=== PATIENT | female | born 1930 | race Caucasian/White ===

== ENCOUNTER 2019-09-30 12:37 | Emergency (ER) ==
--- NOTE | 2019-09-30 14:19 | RAD ---
XR Shoulder Lt 3 View STANDARD HISTORY: Injury, left shoulder pain FINDINGS: No fracture or dislocation is identified. There are degenerative changes in the acromioclavicular nara nt. The humeral head is high riding, suspicious for chronic rotator cuff tear.
[2019-09-30 15:32] LABS: #Eosinphils 0.1 thou/uL (0.0-0.7); #Lymphocytes 0.7 thou/uL (1.20-3.40); #Monocytes 0.7 thou/uL (0.11-0.59); #Neutrophils 5.4 thou/uL (1.40-6.50); %Basophils 0.3 % (0.0-1.0); %Eosinophils 1.1 % (0.0-10.0); %Lymphocytes 10.6 % (21.0-51.0); %Monocytes 9.6 % (0.0-10.0); %Neutrophils 78.4 % (42.0-75.0); Hemoglobin 10.2 g/dL (12.0-16.0); Mean Corpuscular HGB CONC 32.1 g/dL (32.0-36.0); Mean Corpuscular Hemoglobin 26.8 pg (27.0-31.0); Mean Corpuscular Volume 83.5 fL (78.0-98.0); Mean Platelet Volume 7.5 fL (7.4-10.4); Platelet Count 311 thou/uL (130-400); RBC Distribution Width 15.2 % (11.5-14.5); Red Blood Cell (RBC) Count 3.82 mill/uL (4.20-5.40); White Blood Cell (WBC) Count 6.9 thou/uL (4.8-10.8)
[2019-09-30 15:38] LABS: PTT 32.9 SEC (22.9-36.1); Prothrombin Time 13.3 SEC (12.0-14.7)
[2019-09-30 15:47] LABS: ALT (SGPT) 14 U/L (8-55); AST (SGOT) 26 U/L (5-34); Albumin 4.1 g/dL (3.4-4.8); Alkaline Phosphatase 92 U/L (40-110); Anion Gap 6 mmol/L (10-20); BUN (Urea Nitrogen) 23 mg/dL (9.8-20.1); Bilirubin, Total 0.7 mg/dL (0.2-1.2); Calc. Creatinine Clearance 0 mL/min (70-130); Calcium 9.7 mg/dL (7.8-10.44); Carbon Dioxide 29 mmol/L (23-31); Chloride 106 mmol/L (98-107); Estimated GFR-MDRD 52; Globulin 4.3 g/dL (2.4-3.5); Glucose 109 mg/dL (83-110); Protein, Total 8.4 g/dL (6.0-8.3); Sodium 137 mmol/L (136-145)
[2019-09-30 16:19] LABS: CKMB 3.6 ng/mL (0-6.6)
[2019-09-30 17:58] LABS: Troponin I 0.059 ng/mL (< 0.028)
== END 2019-09-30 18:20 | disposition home or self-care (01) ==
LOC: ERS 12:37
DX: M25.512 Pain in left shoulder (principal); I48.91 Unspecified atrial fibrillation; F03.90 Unspecified dementia, unspecified severity, without behavioral disturbance, psychotic disturbance, mood disturbance, and anxiety; D64.9 Anemia, unspecified; M06.9 Rheumatoid arthritis, unspecified; Z79.891 Long term (current) use of opiate analgesic; Z79.899 Other long term (current) drug therapy
CPT/HCPCS: 36415; 36416; 80053; 82553; 84484; 85025; 85610; 85730; 93005

== ENCOUNTER 2019-10-14 11:00 | Inpatient (IN) | payer MEDICARE ==
[2019-10-14] MEDS ORDERED: Lorazepam 2 MG/ML VIAL ONE (11:20)
[2019-10-14 11:32] LABS: #Lymphocytes 0.5 thou/uL (1.20-3.40); #Monocytes 0.6 thou/uL (0.11-0.59); #Neutrophils 4.6 thou/uL (1.40-6.50); %Basophils 0.5 % (0.0-1.0); %Eosinophils 0.8 % (0.0-10.0); %Lymphocytes 8.9 % (21.0-51.0); %Monocytes 10.3 % (0.0-10.0); %Neutrophils 79.4 % (42.0-75.0); Hemoglobin 8.9 g/dL (12.0-16.0); Mean Corpuscular HGB CONC 31.6 g/dL (32.0-36.0); Mean Corpuscular Hemoglobin 26.2 pg (27.0-31.0); Mean Corpuscular Volume 83.1 fL (78.0-98.0); Mean Platelet Volume 7.4 fL (7.4-10.4); Platelet Count 289 thou/uL (130-400); RBC Distribution Width 15.9 % (11.5-14.5); Red Blood Cell (RBC) Count 3.37 mill/uL (4.20-5.40); White Blood Cell (WBC) Count 5.7 thou/uL (4.8-10.8)
[2019-10-14 11:57] LABS: Anion Gap 15 mmol/L (10-20); BUN (Urea Nitrogen) 22 mg/dL (9.8-20.1); Calc. Creatinine Clearance 0 mL/min (70-130); Carbon Dioxide 20 mmol/L (23-31); Chloride 106 mmol/L (98-107); Estimated GFR-MDRD 61; Potassium 3.8 mmol/L (3.5-5.1); Sodium 137 mmol/L (136-145)
[2019-10-14 11:58] LABS: ALT (SGPT) 17 U/L (8-55); AST (SGOT) 26 U/L (5-34); Albumin 3.8 g/dL (3.4-4.8); Alkaline Phosphatase 97 U/L (40-110); Bilirubin, Total 1.2 mg/dL (0.2-1.2); CK (CPK) 48 U/L (29-168); Calcium 9.4 mg/dL (7.8-10.44); Globulin 4.1 g/dL (2.4-3.5); Glucose 97 mg/dL (83-110); Protein, Total 7.9 g/dL (6.0-8.3)
[2019-10-14] MEDS ORDERED: Ondansetron PF 4 MG/2 ML Vial ONE (12:17)
[2019-10-14 13:10] LABS: Bilirubin Negative (Negative); Blood, Urine Negative (Negative); Clarity Clear (Clear); Glucose, Urine (Dipstick) Normal (Negative); Leukocyte Negative Leu/uL (Negative); Nitrite Negative (Negative); Protein, Urine (Dipstick) Negative (Neg-Trace); Urobilinogen Normal mg/dL (Less than 2)
[2019-10-14 13:23] LABS: CKMB 3.5 ng/mL (0-6.6)
[2019-10-14] MEDS ORDERED: Enoxaparin Sodium 30 MG/0.3 ML SYRINGE ONE (14:49)
[2019-10-14] MEDS ORDERED: Enoxaparin Sodium 40 MG/0.4 ML SYRINGE ONE (14:49)
[2019-10-14] MEDS ORDERED: Aspirin 325 MG TAB ONE (14:50)
--- NOTE | 2019-10-14 14:55 | RAD ---
Exam: Chest one view HISTORY:Dyspnea Comparison: None FINDINGS: Cardiac silhouette:Negative. Aorta: Atherosclerosis of the aortic knob Pulmonary vessels: Normal Costophrenic angles: Clear LUNGS: Bilateral interstitial and alveolar opacities. Pneumothorax: None Osseous abnormalities: None IMPRESSION: Relatively. Bilateral interstitial and alveolar opacities. Correlate for heart failure. A therosclerosis.
[2019-10-14 15:03] LABS: Troponin I 0.055 ng/mL (< 0.028)
[2019-10-14] MEDS ORDERED: Acetaminophen 325 MG TAB PO PRN (15:03)
[2019-10-14] MEDS ORDERED: Metoprolol Tartrate 25 MG TAB PO SCH (16:00)
[2019-10-14] MEDS ORDERED: Furosemide 40 MG/4 ML VIAL SLOW IVP SCH (16:00)
--- NOTE | 2019-10-14 17:26 | HP ---
PRIMARY CARE PHYSICIAN: Dr. Jhonathan Waite. CHIEF COMPLAINT: Elevated heart rate, not feeling well, weakness, shortness of breath. HISTORY OF PRESENT ILLNESS: This is an 88-year-old female, resident of [facility] with a documented past medical history of advanced dementia; rheumatoid arthritis, on steroids; chronic anemia; chronic atrial fibrillation, on anticoagulation, secondary to risk/benefit stratification, who was referred to [facility] ER by primary care physician after nursing staff reports resting heart rate in the 140s with the patient complains of not feeling well and subjective shortness of breath over the past several days. A detailed survey due to the patient's unreliable history and collateral information was obtained from ER physician, the patient's son via telephone and the patient's primary care physician via telephone. In the ER, the patient was reported to have resting heart rates of 100, atrial fibrillation with initial blood pressure of 139/103. Labs revealed a mildly elevated troponin I of 0.066, unchanged from weeks prior with an elevated BNP of 940. No chest x-ray was obtained in the ER. The patient was also administered 500 mL normal saline bolus, oral aspirin 325 mg, 1 mg/kg Lovenox injection, and 0.5 mg IV Ativan. At bedside, the patient was oriented to self. She states the past several days, she has been short of breath and has had a discomfort sensation in her throat. She denies any recent illnesses, nausea, vomiting, diarrhea, angina, or abdominal pain. She notes chronic complaints of left shoulder pain. Multiple times the pain is much more accurate, and reliable history from the patient is unobtainable due to the patient's underlying dementia. Discussion with patient's son, Alexy Manuel, via telephone was done. He reports his mother was recently started on memantine low dose by primary care physician. No other changes in medications have been made. He also reports that nursing facility noted the patient's resting heart rate to be 80% to 84% days prior, but several days later, was normal in the mid 90s. He is unclear if his mother has obstructive sleep apnea. She has never been tested. Of note, the patient was evaluated in the ER approximately 2 weeks ago and has had 2 recent visits for being found on the ground. Family does not think that she is falling, but rather "melting" to floor due to her weakness. PAST MEDICAL HISTORY: Advanced dementia; rheumatoid arthritis, on steroids; anemia; chronic atrial fibrillation, on anticoagulation due to risk and benefits as per patient's economic research analyst, Dr. Alvarez; hiatal hernia; and scoliosis. SOCIAL HISTORY: The patient is resided at [facility]. She reports she is ambulatory without assistive devices. No documented tobacco or alcohol use. ALLERGIES: NONE REPORTED. REVIEW OF SYSTEMS: Unable to obtain from the patient as she is unreliable historian. Pertinent positives noted as per HPI. Remainder of review of systems is negative. MEDICATIONS: Home medications will be reviewed as per admission medication reconciliation once it is accurately verified. FAMILY HISTORY: Notable for dementia in multiple family members. The patient's mother at the age of 90. PHYSICAL EXAMINATION: VITAL SIGNS: Temperature maximum afebrile at 97.9, pulse 97, atrial fibrillation, blood pressure 138/103, and oxygen saturation is 94% on room air. GENERAL APPEARANCE: This is an elderly female who is awake, alert, and oriented only to self, otherwise unreliable historian, not in any obvious distress. HEENT: Normocephalic, atraumatic. No facial asymmetry. Mucous membranes moist. NECK: Supple. CARDIOVASCULAR SYSTEM: S1, S2. Regular rate and rhythm. No harsh murmurs. No reproducible chest wall tenderness. LUNGS: Nonlabored respiration on bilateral posterior auscultation. Symmetrical chest expansion. Scattered rhonchi with mild basilar rales. No wheezing. ABDOMEN: Soft, nontender, and nondistended. EXTREMITIES: No appreciable lower extremity edema. SKIN: Warm to touch without rash or pallor. Scattered ecchymoses noted throughout the body. LABORATORY VALUES: Troponin I 0.066 with repeat 0.055. Urinalysis negative. Influenza antigen negative. BNP 938.8. Sodium 137, potassium 3.8, chloride 106, bicarb 20, glucose 97, BUN and creatinine 22/0.88, and GFR 61. Lactic acid 1.0. WBC 5.7, H and H 8.9/28.0, and platelets 289. IMAGING: No imaging was obtained in the emergency room. ASSESSMENT: Chronic atrial fibrillation with possible rapid ventricular response. The patient will be admitted as observation status and placed on telemetry monitoring. Currently, she has ventricular rate control. Review of medications from recent ER visit noted the patient on Lopressor 12.5 mg twice daily. We will increase dose to 25 mg twice daily and monitor for appropriate ventricular rate control. We will obtain one view chest x-ray to evaluate for any pulmonary edema which may be contributing to the patient's subjective complaints of dyspnea in the setting of elevated BNP. Influenza antigen notably negative. Also continue oral Lasix. We will request ambulatory pulse oximetry. The patient may benefit from outpatient polysomnography. Shortness of breath of unspecified etiology. We will obtain one view chest x-ray to evaluate for any pulmonary edema in the setting of chronic atrial fibrillation and reported rapid ventricular response prior to arrival. Acute on chronic anemia. The patient exhibits no signs of reported acute blood loss. We will monitor H and H. Advanced dementia. Unfortunately, this limits majority of the patient's history. We will consult PT and OT to assess for gait evaluation and the patient's safety. The patient does not exhibit any signs of aggression at this time. Urinalysis is negative for any signs of infection. Rheumatoid arthritis, on chronic steroids. We will resume at home dose. Chronic atrial fibrillation. The patient is currently with ventricular rate control. Continue oral Lopressor, increase dose to 25 mg twice daily. Continue oral Lasix as well. DVT prophylaxis: Low-molecular weight heparin. The patient received weight-based dose in ER. Code status: Full code. The patient's son, Alexy Manuel, is surrogate decision maker. Check a.m. labs on 10/15/2019. Disposition: The patient will be admitted as observation status and placed on telemetry monitoring. Anticipate less than 24-hour stay. Job ID: [id number]
[2019-10-14 18:06] LABS: Troponin I 0.063 ng/mL (< 0.028)
[2019-10-14] MEDS: Metoprolol Tartrate 25 MG TAB PO SCH (18:33)
[2019-10-15] MEDS ORDERED: diphenhydrAMINE 50 MG/ML VIAL IVP SCH (00:45)
[2019-10-15 04:35] LABS: Anion Gap 13 mmol/L (10-20); BUN (Urea Nitrogen) 26 mg/dL (9.8-20.1); Calc. Creatinine Clearance 41 mL/min (70-130); Calcium 8.7 mg/dL (7.8-10.44); Carbon Dioxide 21 mmol/L (23-31); Chloride 105 mmol/L (98-107); Estimated GFR-MDRD 48; Glucose 72 mg/dL (83-110); Potassium 3.6 mmol/L (3.5-5.1); Sodium 135 mmol/L (136-145)
[2019-10-15] MEDS ORDERED: Prevnar 13-Val Conj/PF 0.5 ML SYRINGE IM ONE (09:00)
[2019-10-15] MEDS ORDERED: FLU VACC TS2019-20(65YR UP)/PF 180 MCG/0.5 ML SYRINGE IM ONE (09:00)
[2019-10-15] MEDS: Furosemide 20 MG TAB PO SCH (09:30)
[2019-10-15] MEDS: Metoprolol Tartrate 25 MG TAB PO SCH ×2 (09:30→20:35)
[2019-10-15] MEDS: Enoxaparin Sodium 40 MG/0.4 ML SYRINGE SC SCH (09:30)
--- NOTE | 2019-10-15 10:33 | PDOC.HOSPP ---
- Subjective Subjective: Pt is non-verbal. Received Seroquel and Benadryl overnight for agitation. - Objective Vital Signs & Weight: Vital Signs (12 hours) Temp Pulse Resp BP Pulse Ox 10/15/19 07:45 75 16 127/70 95 10/15/19 00:00 97.8 F 100 18 124/77 92 L Weight Weight 156 lb 14.4 oz I&O: 10/14/19 10/15/19 10/16/19 06:59 06:59 06:59 Intake Total 240 Balance 240 Result Diagrams: 10/17/19 04:33 10/17/19 04:33 Hospitalist ROS - Medication Medications: Active Medications Generic Name Dose Route Start Last Admin Trade Name Freq PRN Reason Stop Dose Admin Acetaminophen 650 mg 10/14/19 15:03 10/14/19 21:56 Tylenol PO 650 mg Q4H PRN Administration Headache/Fever/Mild Pain (1-3) Enoxaparin Sodium 40 mg 10/15/19 09:00 10/15/19 09:30 Lovenox SC 40 mg 0900 YOLA Administration Furosemide 20 mg 10/15/19 09:00 10/15/19 09:30 Lasix PO 20 mg DAILY YOLA Administration Metoprolol Tartrate 25 mg 10/14/19 21:00 10/15/19 09:30 Lopressor PO 25 mg BID YOLA Administration - Exam General Appearance: NAD General - other findings: asleep and not arousable to verbal stimulation Heart: no murmur, no gallops, no rubs, irregular Respiratory: CTAB, no wheezes, no rales, no ronchi Respiratory - other findings: anterior auscultation Gastrointestinal: soft Extremities: no cyanosis, no clubbing, no edema Hosp A/P (1) Acute metabolic encephalopathy Code(s): G93.41 - METABOLIC ENCEPHALOPATHY Status: Acute (2) Acute respiratory failure with hypoxia Code(s): J96.01 - ACUTE RESPIRATORY FAILURE WITH HYPOXIA Status: Acute (3) Atrial fibrillation Code(s): I48.91 - UNSPECIFIED ATRIAL FIBRILLATION Status: Acute (4) Dementia Code(s): F03.90 - UNSPECIFIED DEMENTIA WITHOUT BEHAVIORAL DISTURBANCE Status: Acute (5) Rheumatoid arthritis Code(s): M06.9 - RHEUMATOID ARTHRITIS, UNSPECIFIED Status: Acute - Plan Will allow her get some sleep today. It appears that the afib was controlled well with the additional po beta katty. She is stable from that perspective. If her mental status is improved with the rest she gets today, may be able DC soon.
[2019-10-15 14:14] VITALS: BMI 30.6
--- NOTE | 2019-10-15 17:06 | CON ---
DATE OF CONSULTATION: 10/15/2019 PRIMARY ANALYTICAL SCIENCES DIRECTOR: Gia Alvarez MD HISTORY OF PRESENT ILLNESS: Ms. Manuel is a very pleasant 88-year-old white female, who comes to the hospital for not feeling well. She has history of chronic atrial fibrillation. She is a resident at [facility] and she was apparently brought in because the nursing staff reported that her resting heart rate was in the 140s and she was complaining of not feeling well with shortness of breath in the past several days. She was admitted and found to be in atrial fibrillation with RVR. Heart rate was about in the 140s. She was unable to give me any history, but currently she is sleeping on the bed. She has a sitter inside the room and apparently she has had something for agitation, this probably keeping her like this. Currently, her heart rate is in the 60s. She is chronically in atrial fibrillation. PAST MEDICAL HISTORY: 1. Dementia. 2. Rheumatoid arthritis. 3. Some sort of hemolytic anemia on one of the notes from her primary care physician. 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 The last documented hemoglobin that was normal was 12.9 and this was back in December of this year. 4. Chronic atrial fibrillation. 5. No anticoagulation secondary to severe anemia in the past. 6. Hiatal hernia. 7. Scoliosis. SOCIAL HISTORY: Resides at [facility]. No alcohol, tobacco, or drugs. OUTPATIENT MEDICATIONS: 1. Tramadol 50 mg p.r.n. pain. 2. Prednisone 10 mg b.i.d. 3. Omeprazole. 4. Metoprolol 12.5 mg b.i.d. 5. Furosemide 10 mg a day. 6. Gabapentin . 7. . 8. Cymbalta. 9. Tylenol p.r.n. ALLERGIES: NO KNOWN DRUG ALLERGIES. REVIEW OF SYSTEMS: Unobtainable as the patient currently is sleepy. PHYSICAL EXAMINATION: VITAL SIGNS: Temperature 97.4, pulse 72, respiratory rate 18, sat 93% on 2 L nasal cannula, blood pressure 126/76. GENERAL: She is somnolent, but her airway is secure. HEENT: Normocephalic, atraumatic. NECK: Supple. LUNGS: Clear. CARDIOVASCULAR: S1 and S2. No S3 or S4. Irregularly irregular. Heart rate in the 60s. ABDOMEN: Soft. Positive bowel sounds. EXTREMITIES: No edema. SKIN: Warm and dry. LABORATORY DATA: Laboratory work was reviewed. CBC with a white count of 5.7, hemoglobin of 8.9, which is much lower. Just about 3 weeks ago, her hemoglobin was 10.2 and back in December was 12.9. Platelet count of 289. Chemistries were reviewed. Troponin was 0.06, 0.05, 0.06, indeterminate range. UA was negative. Chest x-ray showed bilateral interstitial alveolar opacities. BNP was in 900 range. ASSESSMENT: 1. Acute on chronic diastolic heart failure. 2. Chronic atrial fibrillation with RVR, currently rate controlled. 3. Anemia, new onset. No longer at baseline. PLAN: 1. Continue current regimen with metoprolol 25 mg twice a day. 2. More than likely, her main issue is the anemia. She is probably developing worsening anemia she has had in the past. 3. If this is in fact a hemolytic anemia, I would recommend hematology consultation, may not benefit from blood transfusion. 4. Her atrial fibrillation is chronic and is currently rate controlled. No new recommendation at this time. 5. She has a contraindication to anticoagulation for stroke prophylaxis given her profound anemia in the past and worsening anemia now. Thank you for letting us participate in the care of your patient. Dr. Alvarez, her primary office employee will follow in the morning. Job ID: [id number]
[2019-10-16] MEDS ORDERED: traMADol HCl 50 MG TAB PO PRN (06:06)
[2019-10-16 06:27] LABS: Reticulocyte Count 2.1 % (0.5-1.5)
[2019-10-16 06:40] LABS: Hemoglobin 9.2 g/dL (12.0-16.0); Lymphocytes 10 % (21-51); MDiff Complete? YES; Mean Corpuscular Hemoglobin 26.6 pg (27.0-31.0); Mean Corpuscular Volume 83.2 fL (78.0-98.0); Mean Platelet Volume 7.2 fL (7.4-10.4); Monocytes 10 % (0-10); Neutrophil 80 % (42-75); Platelet Count 291 thou/uL (130-400); Platelet Morphology Comment Appears Adequate; RBC Distribution Width 15.7 % (11.5-14.5); Red Blood Cell (RBC) Count 3.47 mill/uL (4.20-5.40)
[2019-10-16 06:45] LABS: Anion Gap 10 mmol/L (10-20); BUN (Urea Nitrogen) 28 mg/dL (9.8-20.1); Calc. Creatinine Clearance 45 mL/min (70-130); Calcium 8.9 mg/dL (7.8-10.44); Carbon Dioxide 25 mmol/L (23-31); Chloride 103 mmol/L (98-107); Estimated GFR-MDRD 54; Glucose 105 mg/dL (83-110); Potassium 3.4 mmol/L (3.5-5.1); Sodium 135 mmol/L (136-145)
[2019-10-16] MEDS: Gabapentin 100 MG CAP PO SCH (08:30)
[2019-10-16] MEDS: DULoxetine 30 MG CAP PO SCH (08:30)
[2019-10-16] MEDS: Furosemide 20 MG TAB PO SCH (08:30)
[2019-10-16] MEDS: Metoprolol Tartrate 25 MG TAB PO SCH ×2 (08:30→21:23)
[2019-10-16] MEDS ORDERED: Metoprolol Tartrate 25 MG TAB PO SCH (09:00)
[2019-10-16] MEDS ORDERED: Furosemide 20 MG TAB PO SCH (09:00)
[2019-10-16] MEDS: Enoxaparin Sodium 40 MG/0.4 ML SYRINGE SC SCH (09:10)
[2019-10-16] MEDS: predniSONE 1 MG TAB PO SCH ×2 (09:11→21:23)
--- NOTE | 2019-10-16 09:51 | PDOC.HOSPP ---
- Subjective Subjective: Pt is resting in bed. She is not oriented, but has chronic dementia. - Objective Vital Signs & Weight: Vital Signs (12 hours) Temp Pulse Resp BP Pulse Ox 10/16/19 08:00 99.1 F 108 H 24 H 120/57 L 93 L 10/16/19 03:17 98 F 88 16 136/87 96 Weight Admit Weight 157 lb 9.6 oz Weight 156 lb I&O: 10/15/19 10/16/19 10/17/19 06:59 06:59 06:59 Intake Total 240 1100 Output Total 300 Balance 240 800 Result Diagrams: 10/16/19 06:19 10/16/19 06:19 Hospitalist ROS - Medication Medications: Active Medications Generic Name Dose Route Start Last Admin Trade Name Jaswinder PRN Reason Stop Dose Admin Acetaminophen 650 mg 10/14/19 15:03 10/14/19 21:56 Tylenol PO 650 mg Q4H PRN Administration Headache/Fever/Mild Pain (1-3) Duloxetine HCl 30 mg 10/16/19 09:00 10/16/19 08:30 Cymbalta PO 30 mg DAILY YOLA Administration Enoxaparin Sodium 40 mg 10/15/19 09:00 10/16/19 09:10 Lovenox SC 40 mg 0900 YOLA Administration Furosemide 20 mg 10/15/19 09:00 10/16/19 08:30 Lasix PO 20 mg DAILY YOLA Administration Furosemide 10 mg 10/16/19 09:00 10/16/19 08:31 Lasix PO Not Given DAILY YOLA Gabapentin 200 mg 10/16/19 09:00 10/16/19 08:30 Neurontin PO 200 mg DAILY YOLA Administration Metoprolol Tartrate 25 mg 10/14/19 21:00 10/16/19 08:30 Lopressor PO 25 mg BID YOLA Administration Metoprolol Tartrate 12.5 mg 10/16/19 09:00 10/16/19 08:31 Lopressor PO Not Given BID YOLA Pantoprazole Sodium 40 mg 10/16/19 09:00 10/16/19 08:30 Protonix PO 40 mg BID YOLA Administration Prednisone 2 mg 10/16/19 09:00 10/16/19 09:11 Prednisone PO 2 mg BID YOLA Administration - Exam General Appearance: NAD, awake alert General - other findings: Oriented only to self Heart: no murmur, no gallops, no rubs, irregular Respiratory: CTAB, no wheezes, no rales, no ronchi, normal chest expansion, no tachypnea Gastrointestinal: soft, non-tender, non-distended Extremities: no edema Hosp A/P (1) Atrial fibrillation Code(s): I48.91 - UNSPECIFIED ATRIAL FIBRILLATION Status: Acute - Plan Atrial Fibrillation: Patient had apparent RVR at the group home and was tachycardic upon arrival in the ED. Lopressor increased to 25 BID. Rate has been controlled throughout hospital stay. AMS: Patient has chronic dementia. Unclear what her baseline is, but sounds like she might be at baseline. Acute Hypoxic Respiratory Failure: On 2 L O2 NC. Will attempt to wean patient off today.
--- NOTE | 2019-10-16 13:15 | PDOC.CPN ---
- Subjective Date: 10/16/19 Time: 08:30 Interval history: The pt seen and examined. No overnight events. Unable to follow commands at this moment due to dementia or AMS? Sitter at bedside - Objective Allergies/Adverse Reactions: Allergies Allergy/AdvReac Type Severity Reaction Status Date / Time No Known Allergies Allergy Unverified 10/14/19 15:52 Visit Medications: Current Medications Acetaminophen (Tylenol) 650 mg PO Q4H PRN PRN Reason: Headache/Fever/Mild Pain (1-3) Last Admin: 10/14/19 21:56 Dose: 650 mg Duloxetine HCl (Cymbalta) 30 mg PO DAILY [facility] Last Admin: 10/16/19 08:30 Dose: 30 mg Enoxaparin Sodium (Lovenox) 40 mg SC 0900 [facility] Last Admin: 10/16/19 09:10 Dose: 40 mg Furosemide (Lasix) 20 mg PO DAILY [facility] Last Admin: 10/16/19 08:30 Dose: 20 mg Furosemide (Lasix) 10 mg PO DAILY [facility] Last Admin: 10/16/19 08:31 Dose: Not Given Gabapentin (Neurontin) 200 mg PO DAILY [facility] Last Admin: 10/16/19 08:30 Dose: 200 mg Metoprolol Tartrate (Lopressor) 25 mg PO BID [facility] Last Admin: 10/16/19 08:30 Dose: 25 mg Metoprolol Tartrate (Lopressor) 12.5 mg PO BID [facility] Last Admin: 10/16/19 08:31 Dose: Not Given Pantoprazole Sodium (Protonix) 40 mg PO BID [facility] Last Admin: 10/16/19 08:30 Dose: 40 mg Prednisone (Prednisone) 2 mg PO BID [facility] Last Admin: 10/16/19 09:11 Dose: 2 mg Tramadol HCl (Ultram) 50 mg PO DAILYPRN PRN PRN Reason: Moderate Pain (4-6) Vital Signs & Weight: Vital Signs Temp Pulse Pulse Resp BP BP Pulse Ox 10/16/19 11:15 98.9 F 83 22 H 144/79 H 96 10/16/19 10:51 90 124/71 10/16/19 08:00 99.1 F 108 H 24 H 120/57 L 93 L 10/16/19 03:17 98 F 88 16 136/87 96 Pulse Ox 10/16/19 11:15 12/19/19 10:51 91 L 10/16/19 08:00 10/16/19 03:17 Admit Weight 157 lb 9.6 oz Weight 156 lb - Physical Exam General: other (confused) HEENT: mucus membranes moist Neck: supple neck Cardiac: irregularly regular Lungs: clear to auscultation, decreased breath sounds - Labs Result Diagrams: 10/16/19 06:19 10/16/19 06:19 Troponin/CKMB CK-MB (CK-2) 3.5 ng/mL (0-6.6) 10/14/19 11:23 Troponin I 0.063 ng/mL (< 0.028) H 10/14/19 17:25 - Telemetry Supraventricular conduction: atrial fibrillation - Assessment/Plan Assessment/Plan: 1. Parox Afib - well controlled HR with Metoprolol 25mg BID; unable to tolerate OAC due to hx of Anemia 2. AMS - possible due to dementia? sitter at bedside 3. Acute resp failure - on 2LNC 4. Hemolytic anemia - 5. Dementia MAR reviewed * Echo on 10/15/2019 with EF 45-50%, unable to review distolic function 2/2 afib , severe dilated LA, mod MR, mild AR and WI, mod-severe TR, RVSP 71mmHg, and dilated Aortic root 4.1cm
[2019-10-17 05:09] LABS: #Lymphocytes 0.8 thou/uL (1.20-3.40); #Monocytes 1.1 thou/uL (0.11-0.59); #Neutrophils 6.4 thou/uL (1.40-6.50); %Basophils 0.1 % (0.0-1.0); %Eosinophils 0.5 % (0.0-10.0); %Lymphocytes 9.8 % (21.0-51.0); %Monocytes 13.4 % (0.0-10.0); %Neutrophils 76.2 % (42.0-75.0); Anion Gap 11 mmol/L (10-20); BUN (Urea Nitrogen) 25 mg/dL (9.8-20.1); Calc. Creatinine Clearance 49 mL/min (70-130); Calcium 8.7 mg/dL (7.8-10.44); Carbon Dioxide 23 mmol/L (23-31); Chloride 101 mmol/L (98-107); Estimated GFR-MDRD 60; Glucose 108 mg/dL (83-110); Hemoglobin 9.1 g/dL (12.0-16.0); Mean Corpuscular HGB CONC 32.2 g/dL (32.0-36.0); Mean Corpuscular Hemoglobin 26.7 pg (27.0-31.0); Mean Platelet Volume 7.7 fL (7.4-10.4); Platelet Count 277 thou/uL (130-400); Potassium 3.4 mmol/L (3.5-5.1); Red Blood Cell (RBC) Count 3.42 mill/uL (4.20-5.40); Sodium 132 mmol/L (136-145); White Blood Cell (WBC) Count 8.5 thou/uL (4.8-10.8)
[2019-10-17] MEDS: Furosemide 20 MG TAB PO SCH (09:06)
[2019-10-17] MEDS: Metoprolol Tartrate 25 MG TAB PO SCH ×2 (09:06→21:05)
[2019-10-17] MEDS: predniSONE 1 MG TAB PO SCH ×2 (09:07→21:05)
[2019-10-17] MEDS: Gabapentin 100 MG CAP PO SCH (09:07)
[2019-10-17] MEDS: Enoxaparin Sodium 40 MG/0.4 ML SYRINGE SC SCH (09:07)
[2019-10-17] MEDS: DULoxetine 30 MG CAP PO SCH (09:08)
--- NOTE | 2019-10-17 12:48 | PDOC.CPN ---
- Subjective Date: 10/17/19 Time: 08:30 Interval history: The pt seen and examined. No overnight events. Per the sitter at bedside, the pt was awake over last night and just fell sleep this AM. - Objective Allergies/Adverse Reactions: Allergies Allergy/AdvReac Type Severity Reaction Status Date / Time No Known Allergies Allergy Unverified 10/14/19 15:52 Visit Medications: Current Medications Acetaminophen (Tylenol) 650 mg PO Q4H PRN PRN Reason: Headache/Fever/Mild Pain (1-3) Last Admin: 10/14/19 21:56 Dose: 650 mg Duloxetine HCl (Cymbalta) 30 mg PO DAILY [facility] Last Admin: 10/17/19 09:08 Dose: 30 mg Enoxaparin Sodium (Lovenox) 40 mg SC 0900 [facility] Last Admin: 10/17/19 09:07 Dose: 40 mg Furosemide (Lasix) 10 mg PO DAILY [facility] Last Admin: 10/17/19 09:06 Dose: 10 mg Gabapentin (Neurontin) 200 mg PO DAILY [facility] Last Admin: 10/17/19 09:07 Dose: 200 mg Metoprolol Tartrate (Lopressor) 25 mg PO BID [facility] Last Admin: 10/17/19 09:06 Dose: 25 mg Pantoprazole Sodium (Protonix) 40 mg PO BID [facility] Last Admin: 10/17/19 09:06 Dose: 40 mg Prednisone (Prednisone) 2 mg PO BID [facility] Last Admin: 10/17/19 09:07 Dose: 2 mg Tramadol HCl (Ultram) 50 mg PO DAILYPRN PRN PRN Reason: Moderate Pain (4-6) Vital Signs & Weight: Vital Signs Temp Pulse Resp BP Pulse Ox 10/17/19 11:40 98.0 F 92 20 134/79 98 10/17/19 07:40 98.0 F 91 18 139/84 98 10/17/19 04:00 97.5 F L 103 H 18 120/96 H 93 L Admit Weight 157 lb 9.6 oz Weight 154 lb 1.6 oz - Physical Exam General: other (sleeping) - Labs Result Diagrams: 10/17/19 04:33 10/17/19 04:33 Troponin/CKMB CK-MB (CK-2) 3.5 ng/mL (0-6.6) 10/14/19 11:23 Troponin I 0.063 ng/mL (< 0.028) H 10/14/19 17:25 - Telemetry Supraventricular conduction: atrial fibrillation - Assessment/Plan Assessment/Plan: 1. Parox Afib - well controlled HR with Metoprolol 25mg BID; unable to tolerate OAC due to hx of Anemia 2. AMS - possible due to dementia? sitter at bedside 3. Acute resp failure - stable with 2LNC 4. Hemolytic anemia - 5. Dementia MAR reviewed * Echo on 10/15/2019 with EF 45-50%, unable to review diastolic function 2/2 afib, severe dilated LA, mod MR, mild AR and FL, mod-severe TR, RVSP 71mmHg, and dilated Aortic root 4.1cm Pt. seen and eval. by me. I agree with the A/P by the EMAIL SPECIALIST. She is very lethargic and somewhat confused. The HR is reasonably well controlled on the present meds. Continue betablockers. No further cardiac workup at this time.I will sign off. If any further cardiac problems please consult or inform us again.
--- NOTE | 2019-10-17 15:42 | PDOC.HOSPP ---
- Subjective Subjective: Still confused, but seems to be much more calm since the Poole placed. Denies problems. - Objective Vital Signs & Weight: Vital Signs (12 hours) Temp Pulse Resp BP Pulse Ox 10/17/19 11:40 98.0 F 92 20 134/79 98 10/17/19 07:40 98.0 F 91 18 139/84 98 10/17/19 04:00 97.5 F L 103 H 18 120/96 H 93 L Weight Admit Weight 157 lb 9.6 oz Weight 154 lb 1.6 oz I&O: 10/16/19 10/17/19 10/18/19 06:59 06:59 06:59 Intake Total 1100 500 Output Total 300 Balance 800 500 Result Diagrams: 10/17/19 04:33 10/17/19 04:33 Hospitalist ROS - Medication Medications: Active Medications Generic Name Dose Route Start Last Admin Trade Name Freq PRN Reason Stop Dose Admin Acetaminophen 650 mg 10/14/19 15:03 10/14/19 21:56 Tylenol PO 650 mg Q4H PRN Administration Headache/Fever/Mild Pain (1-3) Duloxetine HCl 30 mg 10/16/19 09:00 10/17/19 09:08 Cymbalta PO 30 mg DAILY YOLA Administration Enoxaparin Sodium 40 mg 10/15/19 09:00 10/17/19 09:07 Lovenox SC 40 mg 0900 YOLA Administration Furosemide 10 mg 10/17/19 09:00 10/17/19 09:06 Lasix PO 10 mg DAILY YOLA Administration Gabapentin 200 mg 10/16/19 09:00 10/17/19 09:07 Neurontin PO 200 mg DAILY YOLA Administration Metoprolol Tartrate 25 mg 10/14/19 21:00 10/17/19 09:06 Lopressor PO 25 mg BID YOLA Administration Pantoprazole Sodium 40 mg 10/16/19 09:00 10/17/19 09:06 Protonix PO 40 mg BID YOLA Administration Prednisone 2 mg 10/16/19 09:00 10/17/19 09:07 Prednisone PO 2 mg BID YOLA Administration - Exam General Appearance: NAD, awake alert Heart: no murmur, no gallops, irregular Respiratory: CTAB, no wheezes, no rales, no ronchi, normal chest expansion, no tachypnea, normal percussion Gastrointestinal: soft, non-tender, non-distended, normal bowel sounds, no palpable masses, no hepatomegaly, no splenomegaly, no bruit Extremities: no cyanosis, no clubbing, no edema Musculoskeletal - other findings: Pleasantly confused. Hosp A/P (1) Atrial fibrillation Code(s): I48.91 - UNSPECIFIED ATRIAL FIBRILLATION Status: Acute (2) Acute respiratory failure with hypoxia Code(s): J96.01 - ACUTE RESPIRATORY FAILURE WITH HYPOXIA Status: Acute (3) Dementia Code(s): F03.90 - UNSPECIFIED DEMENTIA WITHOUT BEHAVIORAL DISTURBANCE Status: Acute (4) Urinary retention Code(s): R33.9 - RETENTION OF URINE, UNSPECIFIED Status: Acute (5) Acute metabolic encephalopathy Code(s): G93.41 - METABOLIC ENCEPHALOPATHY Status: Acute (6) Rheumatoid arthritis Code(s): M06.9 - RHEUMATOID ARTHRITIS, UNSPECIFIED Status: Acute - Plan Atrial Fibrillation: Patient had apparent R[facility] at the [facility] and was tachycardic upon arrival in the ED. Lopressor increased to 25 BID. Rate has been controlled throughout hospital stay. Cardiology recommendations noted. AMS: Acute metabolic encephalopathy. May be related to the urinary retention. Patient has chronic dementia. Acute Hypoxic Respiratory Failure: On 2 L O2 NC. Will attempt to wean patient off today. Urinary retention: Will DC the Poole. Bladder scans. If she retains again, replace Poole and consult Urology. Goals for discharge: Wean off oxygen Void with the Poole. Adequate mentation.
--- NOTE | 2019-10-17 16:51 | PDOC.EVN ---
Event Note - Event Note Event Note: Spoke with CM. She was able to call the [place] [facility] and confirm that the patient is at her baseline mentation. She should be able to discharge tomorrow if she can void with the Poole and wean off oxygen.
[2019-10-18] MEDS ORDERED: Potassium Chloride 20 MEQ TAB PO SCH (08:45)
[2019-10-18] MEDS: DULoxetine 30 MG CAP PO SCH (08:58)
[2019-10-18] MEDS: Gabapentin 100 MG CAP PO SCH (08:58)
[2019-10-18] MEDS: Metoprolol Tartrate 25 MG TAB PO SCH ×2 (08:59→20:27)
[2019-10-18] MEDS: Furosemide 20 MG TAB PO SCH (08:59)
[2019-10-18] MEDS: Enoxaparin Sodium 40 MG/0.4 ML SYRINGE SC SCH (08:59)
[2019-10-18] MEDS: predniSONE 1 MG TAB PO SCH (08:59)
[2019-10-18 09:03] LABS: Hemoglobin 9.8 g/dL (12.0-16.0); Mean Corpuscular HGB CONC 31.3 g/dL (32.0-36.0); Mean Corpuscular Hemoglobin 26.3 pg (27.0-31.0); Mean Corpuscular Volume 84.1 fL (78.0-98.0); Mean Platelet Volume 7.4 fL (7.4-10.4); Platelet Count 332 thou/uL (130-400); Red Blood Cell (RBC) Count 3.71 mill/uL (4.20-5.40); White Blood Cell (WBC) Count 9.5 thou/uL (4.8-10.8)
[2019-10-18 09:27] LABS: Anion Gap 13 mmol/L (10-20); BUN (Urea Nitrogen) 20 mg/dL (9.8-20.1); Calc. Creatinine Clearance 51 mL/min (70-130); Carbon Dioxide 22 mmol/L (23-31); Chloride 103 mmol/L (98-107); Estimated GFR-MDRD 64; Glucose 127 mg/dL (83-110); Potassium 3.6 mmol/L (3.5-5.1); Sodium 134 mmol/L (136-145)
[2019-10-18 09:43] LABS: CKMB 1.9 ng/mL (0-6.6)
--- NOTE | 2019-10-18 16:48 | PDOC.HOSPP ---
- Subjective Encounter Date: 10/18/19 Encounter Time: 11:00 Subjective: The patient is doing well, denies chest pain, denies shortness of breath, denies palpitations. She states she ambulates around the hallway with assistance and uses a walker. The patient was deemed stable for discharge today , however assisted living wants to re-evaluate her on Sunday since they felt she was more independent at baseline. - Objective Vital Signs & Weight: Vital Signs (12 hours) Temp Pulse Resp BP Pulse Ox 10/18/19 16:01 98.2 F 88 18 119/69 92 L 10/18/19 11:25 98.3 F 82 27 H 117/77 95 10/18/19 07:38 97.8 F 76 18 136/81 95 Weight Admit Weight 157 lb 9.6 oz Weight 153 lb 1.6 oz I&O: 10/17/19 10/18/19 10/19/19 06:59 06:59 06:59 Intake Total 500 850 Output Total 1950 Balance 500 -1100 Result Diagrams: 10/18/19 08:49 10/18/19 08:49 Hospitalist ROS - Review of Systems Constitutional: denies: fever Respiratory: denies: cough, dry, shortness of breath Cardiovascular: denies: chest pain, palpitations - Medication Medications: Active Medications Generic Name Dose Route Start Last Admin Trade Name Freq PRN Reason Stop Dose Admin Acetaminophen 650 mg 10/14/19 15:03 10/14/19 21:56 Tylenol PO 650 mg Q4H PRN Administration Headache/Fever/Mild Pain (1-3) Duloxetine HCl 30 mg 10/16/19 09:00 10/18/19 08:58 Cymbalta PO 30 mg DAILY YOLA Administration Enoxaparin Sodium 40 mg 10/15/19 09:00 10/18/19 08:59 Lovenox SC 40 mg 0900 YOLA Administration Furosemide 10 mg 10/17/19 09:00 10/18/19 08:59 Lasix PO 10 mg DAILY YOLA Administration Gabapentin 200 mg 10/16/19 09:00 10/18/19 08:58 Neurontin PO 200 mg DAILY YOLA Administration Metoprolol Tartrate 25 mg 10/14/19 21:00 10/18/19 08:59 Lopressor PO 25 mg BID YOLA Administration Pantoprazole Sodium 40 mg 10/16/19 09:00 10/18/19 08:59 Protonix PO 40 mg BID YOLA Administration - Exam General Appearance: NAD, awake alert Eye: PERRL, anicteric sclera ENT: normocephalic atraumatic, no oropharyngeal lesions Neck: supple, symmetric, no JVD Heart: RRR, no murmur, no gallops, no rubs Respiratory: CTAB, no wheezes, no rales, no ronchi Gastrointestinal: soft, non-tender, non-distended, normal bowel sounds Extremities: no cyanosis, no clubbing, no edema Skin: normal turgor, no lesions, no rashes Neurological: cranial nerve grossly intact, normal sensation to touch, no focal deficits, no new deficit Musculoskeletal: normal tone, normal strength, no muscle wasting Hosp A/P - Plan Chest X ray: pulmonary edema ECHO: EF 45-50%, moderate MR, moderate to severe TR, AV valve sclerosis This is an 88 year old female who presented with atrial fibrillation, now controlled #Atrial fibrillation with RVR #Moderate MR #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 Cardiology signed off - not candidate for anticoagulation due to anemia #Anemia - hemoglobin 9.8, B12 and folate normal, ferritin normal - LDH elevated slightly with normal bilirubin, unlikely hemolytic anemia - will repeat CBC, LFTS, LDH and haptoglobin tomorrow #Chronic systolic heart failure - continue lasix 10 mg daily #Hyponatremia - sodium 134, mild will trend tomorrow #Acute encephalopathy - resolved #Urinary retention - resolved after removal of morales Disposition: stable for discharge, will go on Sunday per assisted living Code status: full code
[2019-10-19 05:03] LABS: ALT (SGPT) 18 U/L (8-55); AST (SGOT) 24 U/L (5-34); Albumin 3.4 g/dL (3.4-4.8); Alkaline Phosphatase 93 U/L (40-110); Anion Gap 9 mmol/L (10-20); BUN (Urea Nitrogen) 20 mg/dL (9.8-20.1); Bilirubin, Total 0.8 mg/dL (0.2-1.2); Calc. Creatinine Clearance 52 mL/min (70-130); Calcium 9.1 mg/dL (7.8-10.44); Carbon Dioxide 26 mmol/L (23-31); Chloride 101 mmol/L (98-107); Estimated GFR-MDRD 66; Glucose 97 mg/dL (83-110); Potassium 3.4 mmol/L (3.5-5.1); Protein, Total 7.4 g/dL (6.0-8.3); Sodium 133 mmol/L (136-145)
[2019-10-19 06:46] LABS: Band 5 % (5-11); Hemoglobin 9.7 g/dL (12.0-16.0); Lymphocytes 8 % (21-51); MDiff Complete? YES; Mean Corpuscular HGB CONC 32.8 g/dL (32.0-36.0); Mean Corpuscular Hemoglobin 27.3 pg (27.0-31.0); Mean Corpuscular Volume 83.2 fL (78.0-98.0); Mean Platelet Volume 7.6 fL (7.4-10.4); Monocytes 10 % (0-10); Neutrophil 77 % (42-75); Platelet Count 317 thou/uL (130-400); RBC Distribution Width 15.8 % (11.5-14.5); Red Blood Cell (RBC) Count 3.56 mill/uL (4.20-5.40); White Blood Cell (WBC) Count 8.5 thou/uL (4.8-10.8)
[2019-10-19] MEDS ORDERED: Potassium Chloride 20 MEQ TAB PO SCH (07:30)
[2019-10-19 07:40] VITALS: BP 144/78; TEMP 97.9
[2019-10-19] MEDS: Enoxaparin Sodium 40 MG/0.4 ML SYRINGE SC SCH (09:17)
[2019-10-19] MEDS: DULoxetine 30 MG CAP PO SCH (09:17)
[2019-10-19] MEDS: Furosemide 20 MG TAB PO SCH (09:17)
[2019-10-19] MEDS: Gabapentin 100 MG CAP PO SCH (09:17)
[2019-10-19] MEDS: Metoprolol Tartrate 25 MG TAB PO SCH (09:17)
--- NOTE | 2019-10-20 11:00 | DIS ---
DATE OF ADMISSION: 10/16/2019 DATE OF DISCHARGE: 10/19/2019 DISCHARGE DIAGNOSES: Atrial fibrillation with rapid ventricular response, moderate mitral regurgitation, [id number] tricuspid regurgitation, AV valve sclerosis, anemia, chronic systolic heart failure, acute encephalopathy, hyponatremia, and urinary retention. CONSULTATIONS: Cardiology with Dr. Richard Pugh. PROCEDURES: None. BRIEF HISTORY OF PRESENT ILLNESS: This is an 88-year-old female with past medical history of advanced dementia, rheumatoid arthritis, anemia, and atrial fibrillation, who presented to the emergency room after her PCP noticed that her resting heart rate was in the 140s and the patient was not feeling well. The patient was noted to be in atrial fibrillation with RVR on admission in the ER. The patient had a chest x-ray on admission, which had showed some pulmonary edema. CBC was only remarkable for hemoglobin of 8.9, troponin was 0.066 on admission. The patient was admitted for further workup. Atrial fibrillation with RVR: The patient was initially on Lopressor 12.5 mg twice daily which was increased to 25 mg twice daily with subsequent control of her heart rate. Cardiology was consulted during her admission. She received IV diuretics due to acute heart failure which was contributing to her atrial fibrillation. ECHO showed an EF of 40% to 50%, moderate MR, [id number] TR, and AV valve sclerosis with no wall motion abnormalities. The patient was not a candidate for anticoagulation due to worsening anemia on anticoagulation in the past. She was advised to follow up with Dr. Alvarez in a week. Acute systolic heart failure: The patient presented with some pulmonary edema and was an uncontrolled atrial fibrillation. EF was 40-50% on this admission. The patient did receive one dose of IV Lasix 40 mg on the . She was there after transition to p.o. Lasix. She was discharged back on her home dose of Lasix 10 mg p.o. daily. Acute encephalopathy, possibly secondary to urinary retention: The patient did have an episode of agitation during her admission, which was thought to be secondary to urinary retention. After she had Poole catheter placement, her agitation resolved. UA was negative for UTI. Her Poole was removed and patient was voiding well and her mental status is now back to her baseline which is oriented to person only. Anemia: Hemoglobin was 9 during her hospital course. B12 and folate were normal. Ferritin was normal as well. Her LDH was elevated above 200; however, her LFTs were normal, so this is unlikely hemolytic anemia. The patient did have a haptoglobin sent off, which is still pending. The patient can have this further worked up as an outpatient with her PCP. Hyponatremia: Sodium was 132 which improved to 135 on the day of discharge. This is likely secondary to Lasix. Hypokalemia: The patient had a potassium of 3.4 on the day of discharge. She was given 20 mEq of potassium on the day of discharge and was discharged with potassium supplement daily given that she was sent home on Lasix. She should have a repeat BMP in a week. Troponin elevation: This was most likely secondary to uncontrolled atrial fibrillation. Her troponin peaked at 0.066. The patient denied any complaints of chest pain. Cardiology did not think the patient needed further workup. DISCHARGE PHYSICAL EXAMINATION: VITAL SIGNS: Temperature 97.9, heart rate 84, respiratory rate 18, O2 saturation 94% on room air, blood pressure 144/78. GENERAL: The patient is alert and oriented x1. CVS: Regular rate and rhythm with no murmurs, rubs, or gallops. LUNGS: Clear to auscultation bilaterally. ABDOMEN: Positive bowel sounds, soft, nontender, and nondistended. EXTREMITIES: No edema. NEURO: The patient is moving all 4 extremities with intact sensation and strength in all 4 extremities. PERTINENT LABORATORY DATA: CBC 10/19: Hb 9.7, Hct 29.6. BMP on 10/18: Na 134, K is 3.6. Ferritin 10/18: 55.9. Troponin I 10/18: 0.043 which is down from 0.066 on admission. Vitamin B12: Greater than 2000. Folate: 15.20. UA, 10/14: Unremarkable. PERTINENT IMAGING: Chest x-ray 10/14: Shows bilateral interstitial and alveolar opacities. Echocardiogram 10/15: Shows EF of 40% to 50%, diastolic dysfunction indeterminate due to atrial fibrillation, severely dilated left atrium, markedly enlarged right atrium. Moderate MR. Aortic valve sclerosis. Mild AR. Mild MD. [id number] TR. Elevated right ventricular systolic pressure at 71. Dilated aortic root of 4.1 cm. DISCHARGE MEDICATIONS: New medications: Metoprolol 25 mg p.o. b.i.d. and potassium 20 mg p.o. daily. All other home medications will be continued. DISCHARGE CONDITION: Stable. DISPOSITION: The patient will be discharged home. Her son stated that he wanted to bring her home that she could be there for [place] dinner. DIET: The patient will be sent on a heart healthy diet with a 2 L fluid restriction DISCHARGE INSTRUCTIONS: The patient was told to start taking an increased dose of metoprolol to 25 mg twice a day. She was advised to follow up with Dr. Alvarez in a week from Cardiology. She should follow up with her PCP in a week and have her anemia further worked up as an outpatient. She should also have a repeat BMP in a week. Job ID: [id number] MTDD
--- NOTE | 2019-10-21 00:59 | PQF ---
ARSEN MEYER, LE [id number] CLINICAL DOCUMENTATION CLARIFICATION FORM: POST DISCHARGE Addendum to original discharge summary date: ____ Late entry note date: __ DATE: 10/21/19 ATTN: Le Watkins Please exercise your independent, professional judgment in responding to the clarification form. Clinical indicators are provided on the bottom of this form for your review In your clinical opinion based on clinical findings below, can you please further clarify condition as the reason for Inpatient admission if due to : Please check appropriate box(s): [ ] CHF exacerbation [X ] Paroxysmal Atrial Fibrillation [ ] Other diagnosis [ ] Unable to determine In addition, please specify: Present on Admission (POA): [ X] Yes [ ] No [ ] Unable to determine For continuity of documentation, please document condition throughout progress notes and discharge summary. Thank You. CLINICAL INDICATORS - SIGNS / SYMPTOMS / LABS Chest X-ray 10/14 Dr Olivas Impression: relatively. Bilateral interstitial and alveolar opacities. Correlate for heart failure H&P p1 10/14 Dr Olivas referred to [facility] ER by primary care physician after nursing staff reports resting heart rate in the 140s with the patient complains of not feeling well and subjective shortness or breath over the past several days H&P p1 10/14 Dr Olivas In ER reported resting heart rates of 100, atrial fibrillation with initial blood pressure of 139/103. H&P p1 10/14 Dr Olivas Labs revealed mildly elevated troponin I of 0.066, unchanged from weeks prior with an elevated BNP of 940. RISK FACTORS H&P p1 10/14 88 year-old H&P p3 10/14 Chronic Atrial Fibrillation Cardiology Consult p2 10/15 Acute on Chronic diastolic heart failure Hospitalist PN 10/15 Acute Respiratory failure with Hypoxia TREATMENTS: JAN 07 IV Lasix JAN 07 MAR 500ml NS bolus JAN 07 IV Ativan H&P p3 10/14 Lopressor 12.5mg twice daily, will increased dose to 25mg twice daily H&P p3 10/14 monitor for appropriate ventricular rate control Cardiology Consult 10/15 Richard Quintero (This form is maintained as a part of the permanent medical record) 2014 [employer], [employer]. All Rights Reserved Carrie .Yoke [not provided] MTDD
== END 2019-10-19 10:40 | disposition home or self-care (01) | DRG 308 ==
LOC: ERS 11:00 → 2NO 13:11 → OBSVTOIN 10-16 10:57
PROVIDERS: ADMIT Hospitalist; ATTEND Hospitalist
PROC: 0T9B70Z Drainage of Bladder with Drainage Device, Via Natural or Artificial Opening (ICD-10-PCS; principal; 2019-10-16)
DX: I48.0 Paroxysmal atrial fibrillation (principal); I50.23 Acute on chronic systolic (congestive) heart failure; G93.41 Metabolic encephalopathy; J96.01 Acute respiratory failure with hypoxia; E87.1 Hypo-osmolality and hyponatremia; F03.91 Unspecified dementia, unspecified severity, with behavioral disturbance; D58.9 Hereditary hemolytic anemia, unspecified; I48.20 Chronic atrial fibrillation, unspecified; I08.3 Combined rheumatic disorders of mitral, aortic and tricuspid valves; R33.9 Retention of urine, unspecified; D64.9 Anemia, unspecified; E87.6 Hypokalemia; M06.9 Rheumatoid arthritis, unspecified; M41.9 Scoliosis, unspecified; Z79.899 Other long term (current) drug therapy
CPT/HCPCS: 36415; 51701; 71045; 80048; 80053; 81003; 82550; 82553; 82607; 82728; 82746; 83010; 83605; 83615; 83880; 84484; 85007; 85025; 85027; 85046; 87804; 93005; 93306; 93798; 96361; 96372; 96374; 96375; A4353; J1200; J1650; J1940; J2060; J2405; J7512

== ENCOUNTER 2019-11-05 00:31 | Emergency (ER) | payer MEDICARE, SELFPAY | END 2019-11-05 01:44 | disposition home or self-care (01) | LOC: ERS 00:31 | DX: I48.20 Chronic atrial fibrillation, unspecified (principal); M06.9 Rheumatoid arthritis, unspecified; D64.9 Anemia, unspecified; F03.90 Unspecified dementia, unspecified severity, without behavioral disturbance, psychotic disturbance, mood disturbance, and anxiety; Z79.899 Other long term (current) drug therapy | CPT/HCPCS: 99284 ==

== ENCOUNTER 2019-11-26 10:51 | Emergency (ER) | payer MEDICARE, SELFPAY ==
--- NOTE | 2019-11-26 11:32 | CT ---
CT Brain WO Con: 11/26/2019 11:12 AM CLINICAL HISTORY: History of fall hitting the occipital scalp on a dresser now with confusion. IMAGING TECHNIQUE: Multiple CT images were obtained of the brain without IV contrast. COMPARISON: None. FINDINGS: Brain: No acute infarct or hemorrhage is evident. No midline shift is present. There is moderate to severe chronic small vessel white matter ischemic change. There is mild generalized cerebral and cerebellar atrophy. Ventricles: Normal. No hydrocephalus. Skull: Intact. Visualized Paranasal sinuses: Clear. Mastoid air cells:Clear. Extracranial soft tissues:Normal. IMPRESSION: No acute intracranial abnormality.
== END 2019-11-26 13:35 | disposition home or self-care (01) ==
LOC: ERS 10:51
DX: S00.03XA Contusion of scalp, initial encounter (principal); I48.91 Unspecified atrial fibrillation; D64.9 Anemia, unspecified; F03.90 Unspecified dementia, unspecified severity, without behavioral disturbance, psychotic disturbance, mood disturbance, and anxiety; Z79.899 Other long term (current) drug therapy; W06.XXXA Fall from bed, initial encounter
CPT/HCPCS: 70450